=== PATIENT | female | born 1955 | race Caucasian/White ===

== ENCOUNTER 2017-07-07 08:48 | Emergency (ER) | payer OTHER ==
[~2017-07-07] VITALS: Ht 167.6 cm; Wt 61.2 kg
[2017-07-07] MEDS ORDERED: ZOFRAN ODT4 M1 PO (10:54)
[2017-07-07] MEDS ORDERED: NORCO 5-325 TA1 EACH PO (10:54)
[2017-07-07 11:39] VITALS: BP 107/67
== END 2017-07-07 11:39 | disposition home or self-care (01) ==
LOC: M.ERS 08:48
DX: S62.614A Displaced fracture of proximal phalanx of right ring finger, initial encounter for closed fracture (principal); S62.612A Displaced fracture of proximal phalanx of right middle finger, initial encounter for closed fracture; Z88.5 Allergy status to narcotic agent; W23.0XXA Caught, crushed, jammed, or pinched between moving objects, initial encounter; Y93.89 Activity, other specified; Y92.89 Other specified places as the place of occurrence of the external cause; Y99.8 Other external cause status